=== PATIENT | male | born 1990 | race African-American/Black ===

== ENCOUNTER 2019-11-12 09:19 | Emergency (ER) | payer SELFPAY ==
--- NOTE | 2019-11-12 09:27 | ED.SKABFB ---
HPI - Skin/Abscess/Foreign Bdy General Chief complaint: Skin/Abscess/Foreign Body Stated complaint: rash Time Seen by Provider: 11/12/19 09:27 Source: patient and RN notes reviewed History of Present Illness HPI narrative: Patient is a 29-year-old male that presents the urgent care with complaints of psoriasis and possible ringworm. Patient states that he was seen here in the past for psoriasis and use the hydrocortisone cream, followed up with a physician and continue to cream. Patient states that approximately 1 month ago he developed more lesions to the back of the neck and now they have spread into the jawline, scalp, groin and the bottoms of the feet. Patient states that his girlfriend also has lesions to her groin. Patient has not used anything kbgo-cyk-ooyxpra with the exception of athlete's foot spray. No other acute complaints. No acute distress noted. Patient had a plan of care. Related Data Home Medications Medication Instructions Recorded Confirmed No Home Medications 08/22/19 11/12/19 Allergies Allergy/AdvReac Type Severity Reaction Status Date / Time Bumble Bee Allergy Unknown Swelling Uncoded 11/12/19 09:27 ZEST SOAP Allergy Unknown Rash Uncoded 11/12/19 09:27 Review of Systems Review of Systems: Narrative: CONSTITUTIONAL: Denies fever, chills, or sweats. EYES: Denies visual changes, redness, or discharge. ENT: Denies rhinorrhea, congestion, sore throat, or otalgia. CARDIOVASCULAR: Denies chest pain, palpitations, or edema. RESPIRATORY: Denies cough or dyspnea. GASTROINTESTINAL: Denies abdominal pain, nausea, vomiting, or diarrhea. GENITOURINARY: Denies dysuria or hematuria. SKIN: Denies rash or itching. MUSCULOSKELETAL: Denies back pain, joint pain, or myalgia. NEUROLOGIC: Denies headache, numbness, or weakness. PSYCHIATRIC: Denies anxiety or depression. All other systems reviewed are negative, except as documented in HPI. [facility] Social History Social History Smoking status: Never smoker Gender identity (if verbalized by the patient): Male Comments At the time of my signature, I reviewed and agree with the nursing past medical, surgical, social, and family history. There is no relevant family history pertinent to the patient complaint. Exam Narrative: Exam Narrative: GENERAL: This is a well-nourished, well-developed patient, in no apparent distress. HEAD: normocephalic, atraumatic. EYES: PERRL. Sclera clear/white. Vision is grossly intact. EARS: External ears normal NOSE: External nose normal with no obvious nasal discharge THROAT: Mucous membranes moist NECK: Neck supple CARDIOVASCULAR: Regular rate and rhythm SKIN: Dry plaque lesions to the antecubitus region bilaterally; multiple red circular lesions with clear plaque to center noted in the scalp, jawline, back of the neck, bottoms of the feet, groin NEURO: awake, alert, and oriented to person, place and time. There were no obvious focal neurologic abnormalities. EXTREMITIES: No clubbing, cyanosis, or edema. Course Vital Signs Vital signs: Vital Signs Temperature 98.0 F 11/12/19 09:28 Pulse Rate 105 H 11/12/19 09:28 Respiratory Rate 16 11/12/19 09:28 Blood Pressure 136/76 11/12/19 09:28 Pulse Oximetry 99 11/12/19 09:28 Temperature 98.0 F 11/12/19 09:28 Pulse Rate 105 H 11/12/19 09:28 Respiratory Rate 16 11/12/19 09:28 Blood Pressure 136/76 11/12/19 09:28 Pulse Oximetry 99 11/12/19 09:28 Reviewed MDM - Skin/Abscess/Foreign Bdy MDM Narrative Medical decision making narrative: Advised the patient to take the oral medication as prescribed. Make sure if you are sweating throughout the day that you are changing your close and reapplying the cream after washing the sweaty areas. Take a bath twice a day as necessary. Continue to use the amwi-zho-mazahlv fungal scrub. Make sure any towels that you are using after the bath you are discarding and using a f
[2019-11-12 09:28] VITALS: BP 136/76; PULSE 105; RESP 16; TEMP 36.7; O2SAT 99
== END 2019-11-12 09:57 | disposition home or self-care (01) ==
PROVIDERS: Emergency Provider Nurse Practitioner Family
DX: B35.9 Dermatophytosis, unspecified (principal)
CPT/HCPCS: 99213; G0463

== ENCOUNTER 2019-12-24 10:15 | Emergency (ER) | payer SELFPAY ==
[2019-12-24 10:55] VITALS: BP 117/77; PULSE 93; RESP 16; TEMP 37.1; O2SAT 99
--- NOTE | 2019-12-24 11:37 | ED.GENADULT ---
HPI - General Adult General Chief complaint: Eye Problems Stated complaint: right pink eye/ringworm Time Seen by Provider: 12/24/19 11:21 Source: patient, RN notes reviewed and old records reviewed Mode of arrival: ambulatory Limitations: no limitations History of Present Illness HPI narrative: Patient presents today complaining of her chronic skin infection that is present on his bilateral arms and posterior neck x3 months. Rash waxes and wanes. He has been seen a few times at [facility] for same complaint. He has been previously diagnosed with psoriasis and tinea. States that lesions disappear, but tend to return. He is also complaining of redness and blurred vision with increased watering to the right eye x4 days. Denies any additional symptoms. He has been using Visine and took 1 dose of Benadryl. Reports the Visine did help with the redness. Reports the Benadryl was of no help. MD complaint: Right eye redness, skin lesion Related Data Home Medications Medication Instructions Recorded Confirmed No Home Medications 12/24/19 12/24/19 Allergies Allergy/AdvReac Type Severity Reaction Status Date / Time Bumble Bee Allergy Unknown Swelling Uncoded 12/24/19 11:11 ZEST SOAP Allergy Unknown Rash Uncoded 12/24/19 11:11 Review of Systems Review of Systems: Narrative: CONSTITUTIONAL: Denies body aches, fever, chills, or sweats. EYES: Denies visual changes, discharge.+ Right eye: Blurred vision, increased watering, redness ENT: Denies rhinorrhea, congestion, sore throat, or otalgia. CARDIOVASCULAR: Denies chest pain, palpitations, or edema. RESPIRATORY: Denies cough or dyspnea. GASTROINTESTINAL: Denies abdominal pain, nausea, vomiting, or diarrhea. GENITOURINARY: Denies dysuria or hematuria. SKIN: Denies itching, or wounds.+ Rash to arms and posterior neck MUSCULOSKELETAL: Denies back pain, joint pain, or myalgia. NEUROLOGIC: Denies headache, numbness, tingling, or weakness. PSYCH: Denies depression or anxiety. [facility] Social History Social History Smoking status: Never smoker Gender identity (if verbalized by the patient): Male Comments At time of signature, I have reviewed and agree with nursing past medical, surgical, social and family history unless otherwise noted. Please see nursing chart for further information. There is no relevant family history pertinent to the presenting complaint Exam Narrative: Exam Narrative: GENERAL: Well-appearing, well-nourished, and in no acute distress. HEAD: Normocephalic, atraumatic. EYES: EOMI. PERRL. Right eye: Moderately injected and mildly swollen conjunctiva. ENT: Mucous membranes pink and moist. Nares clear. No rhinorrhea. Uvula midline. NECK: Normal AROM. Supple. No lymphadenopathy. CHEST: No respiratory distress. Clear to auscultation. HEART: Regular rate and rhythm. No murmur appreciated. Normal peripheral pulses. ABDOMEN: Soft, nontender, nondistended, normal active bowel sounds. MUSCULOSKELETAL: No bony tenderness. EXTREMITIES: Normal range of motion. No edema. SKIN: Warm, dry. Capillary refill normal. Normal skin turgor.Scarred circular lesions to bilateral antecubital fossa and upper arms. Cluster of same lesions to the posterior neck. Patient has faded scarring covering most surfaces of his arms. NEURO: No focal deficits. Alert and oriented x3. Gait steady. PSYCH: Normal affect. No signs of depression or anxiety. Course Vital Signs Vital signs: Vital Signs Temperature 98.7 F 12/24/19 10:55 Pulse Rate 93 12/24/19 10:55 Respiratory Rate 16 12/24/19 10:55 Blood Pressure 117/77 12/24/19 10:55 Pulse Oximetry 99 12/24/19 10:55 Temperature 98.7 F 12/24/19 10:55 Pulse Rate 93 12/24/19 10:55 Respiratory Rate 16 12/24/19 10:55 Blood Pressure 117/77 12/24/19 10:55 Pulse Oximetry 99 12/24/19 10:55 Reviewed Medical Decision Making Differential Diagnosis Dif
== END 2019-12-24 11:45 | disposition home or self-care (01) ==
PROVIDERS: Emergency Provider Nurse Practitioner; PCP Family Medicine
DX: L40.9 Psoriasis, unspecified (principal); H10.11 Acute atopic conjunctivitis, right eye
CPT/HCPCS: 99212; G0463

== ENCOUNTER 2024-02-10 05:45 | Emergency (ER) | payer OTHER, SELFPAY ==
--- NOTE | ~2024-02-10 | XR_ITS ---
Right ankle Technique: AP, oblique, and lateral views were obtained. Clinical History: Pain Findings: No acute fracture or dislocation is seen. Osseous alignment is anatomic. Ankle mortise and other visualized joint spaces are preserved. Soft tissues are otherwise unremarkable. Impression: No acute abnormality. Reviewed, dictated and finalized at location . Impression: No acute abnormality.
--- NOTE | ~2024-02-10 | XR_ITS ---
Right Knee Technique: AP, lateral, and sunrise views were obtained. Clinical History: Pain Findings: There is a probable longitudinally oriented nondisplaced acute fracture of the lateral aspe ct of the patellar body, less likely bipartite patella. No other fracture or dislocation seen. Joint spaces are preserved without degenerative or erosive change. Soft tissues are unremarkable. No joint effusion is seen. Impression: Probable longitudinally oriented nondisplaced acute fracture the lateral patellar body, less likely b ipartite patella. Correlate for point tenderness. Reviewed, dictated and finalized at location M. Impression: Probable longitudinally oriented nondisplaced acute fracture the lateral patell ar body, less likely bipartite patella. Correlate for point tenderness.
--- NOTE | ~2024-02-10 | XR_ITS ---
AP and lateral views of the right tibia/fibula Clinical History: Trauma Findings: Probable acute, longitudinal oriented, nondisplaced fracture the lateral aspect of the shepard llar body. No other fracture or dislocation seen. Joint spaces are preserved without significant eros catina or degenerative change. Soft tissues are unremarkable. Impression: Probable acute, longitudinally oriented, nondisplaced fracture of the lateral aspect of the patellar body. Reviewed, dictated and finalized at location M. Impression: Probable acute, longitudinally oriented, nondisplaced fracture of the lateral a spect of the patellar body.
[2024-02-10 05:52] VITALS: BP 142/103; PULSE 67; RESP 16; TEMP 37; O2SAT 100
[2024-02-10 06:16] VITALS: BP 123/85; PULSE 116; RESP 16; O2SAT 98
--- NOTE | 2024-02-10 07:28 | ED.GENADULT ---
HPI - General Adult General Chief complaint: Extremity Injury, Lower Stated complaint: fall, leg pain Time Seen by Provider: 02/10/24 06:53 History of Present Illness HPI narrative: 33-year-old male present to the emergency department for evaluation for right leg pain. Patient states he was running yesterday had a fall and landed on his right knee. Patient does complain of pain to the right knee. Patient denies striking head denies any loss of consciousness. Patient denies any other pain or injury. Patient does have pain with ambulation and pain with range of motion of the right knee. Related Data Home Medications Medication Instructions Recorded Confirmed No Home Medications 12/24/19 12/24/19 Allergies Allergy/AdvReac Type Severity Reaction Status Date / Time Bumble Bee Allergy Unknown Swelling Uncoded 12/24/19 11:11 ZEST SOAP Allergy Unknown Rash Uncoded 12/24/19 11:11 Review of Systems Review of Systems: All systems reviewed & are unremarkable except as noted in HPI and below PMFSH Social History Social History Smoking status: Never smoker Gender identity (if verbalized by the patient): Male Exam Narrative: APPEARANCE: Well appearing, no pain, no distress, well-nourished. HEAD: normocephalic, atraumatic. EYES: PERRLA/EOMI, conjunctivae clear. NOSE: Normal no drainage EARS:TMS clear with good light reflex. THROAT: Pharynx clear, no exudate. NECK: Supple. No adenopathy, no masses. RESPIRATORY: Airway patent, respirations nonlabored. Clear to auscultation bilaterally, no rales, rhonchi, wheezing. CARDIOVASCULAR: Regular rate and rhythm without murmurs rubs or gallops. ABDOMINAL: Soft, nontender, nondistended, normal bowel sounds MUSCULOSKELETAL: Tenderness to anterior knee/patella with palpation, no deformity NEURO: Alert. Cranial nerves II through XII intact. Good gait. Good coordination SKIN: Warm, dry. Normal Color Course Course Emergency Course: Patient does have a patellar fracture, he was provided knee immobilizer and crutches for limited weight-bearing Vital Signs Vital signs: Vital Signs Temperature 98.6 F 02/10/24 05:52 Pulse Rate 67 02/10/24 05:52 Respiratory Rate 16 02/10/24 05:52 Blood Pressure 142/103 H 02/10/24 05:52 Pulse Oximetry 100 02/10/24 05:52 Oxygen Delivery Room Air 02/10/24 05:52 Temperature 98.6 F 02/10/24 05:52 Pulse Rate 90 02/10/24 08:30 Respiratory Rate 16 02/10/24 08:30 Blood Pressure 135/94 H 02/10/24 08:30 Pulse Oximetry 100 02/10/24 08:30 Oxygen Delivery Room Air 02/10/24 05:52 Medical Decision Making MDM Narrative Medical decision making narrative: 33-year-old male presenting to the emergency department for evaluation for knee pain. X-ray of the right knee does show a patellar fracture. Patient was placed in knee immobilizer and provided crutches for limited weight-bearing. Patient was encouraged to have close follow-up with Orthopedics. Differential Diagnosis Differential Diagnosis: Tib-fib injury, knee injury, ankle injury Vital Signs Vital Signs: Vital Signs Temperature 98.6 F 02/10/24 05:52 Pulse Rate 67 02/10/24 05:52 Respiratory Rate 16 02/10/24 05:52 Blood Pressure 142/103 H 02/10/24 05:52 Pulse Oximetry 100 02/10/24 05:52 Oxygen Delivery Room Air 02/10/24 05:52 Temperature 98.6 F 02/10/24 05:52 Pulse Rate 90 02/10/24 08:30 Respiratory Rate 16 02/10/24 08:30 Blood Pressure 135/94 H 02/10/24 08:30 Pulse Oximetry 100 02/10/24 08:30 Oxygen Delivery Room Air 02/10/24 05:52 Imaging Data Radiologist's impression: Impressions Ankle X-Ray 02/10/24 06:45 Impression: No acute abnormality. Knee X-Ray 02/10/24 06:46 Impression: Probable longitudinally oriented nondisplaced acute fracture the lateral patellar body, less likely bipartite patella. Correlate for point tenderness.
[2024-02-10] MEDS: HYDROcodone/acetaminophen (*CRX) 5-325 MG TABLET 1 TAB PO (07:37)
[2024-02-10 08:30] VITALS: BP 135/94; PULSE 90; RESP 16; O2SAT 100
== END 2024-02-10 08:30 | disposition home or self-care (01) ==
PROVIDERS: Emergency Provider Emergency Medicine; PCP Family Medicine
DX: S82.001A Unspecified fracture of right patella, initial encounter for closed fracture (principal); W01.0XXA Fall on same level from slipping, tripping and stumbling without subsequent striking against object, initial encounter
CPT/HCPCS: 73562; 73590; 73610; 99284; A9270

== ENCOUNTER 2024-02-20 10:44 | Outpatient (CLI) | payer OTHER, SELFPAY ==
--- NOTE | ~2024-02-20 | MR_ITS ---
MRI of the right knee Clinical history: Internal derangement Technique: Coronal proton density and proton density-weighted images, sagittal proton-density and T2 fat-sat images, and axial proton-density fat-saturated images were acquired. Findings: Anterior and posterior cruciate ligaments are intact. There is mild increased signal of the ACL, with intact fibers. Medial collateral ligament and the lateral collateral ligament complex are intact. Popliteus tendon is intact. Medial and lateral menisci are intact, without evidence of tear. Articular cartilage is well preserved throughout the knee. There is a chronic nonunited fracture of t he lateral aspect of the patella versus bipartite patella. There are focal mild bone contusions at th e medial aspect of the femoral trochlea, and anterior aspect of the proximal tibia. Additional focal contusion present at the posterior medial tibial plateau. Extensor mechanism is intact. Small joint effusion present. No significant Salas's cyst. Impression: Mild increased signal of the ACL could reflect ACL sprain. No definite tear. Mild bone contusions of the femoral trochlea and proximal tibia, as detailed above. 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 Small joint effusion. Reviewed, dictated and finalized at location . Impression: Mild increased signal of the ACL could reflect ACL sprain. No definite tear. Mild bone contusions of the femoral trochlea and proximal tibia, as detailed ab ove. 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 Small joint effusion.
== END 2024-02-20 10:45 ==
PROVIDERS: PCP Family Medicine; Visit Provider Orthopaedic Surgery
DX: S80.11XA Contusion of right lower leg, initial encounter (principal); M25.461 Effusion, right knee; X58.XXXA Exposure to other specified factors, initial encounter
CPT/HCPCS: 73721

== ENCOUNTER 2025-05-14 23:56 | Emergency (ER) | payer OTHER, SELFPAY ==
[2025-05-14 23:59] VITALS: BP 130/76; PULSE 88; RESP 20; TEMP 37.1; O2SAT 100
--- NOTE | 2025-05-15 02:15 | PC.NURSE ---
eye kit at bedside for edp
--- OUTSIDE RECORDS SUMMARY | 2025-05-15 02:16 | XMS_ITS | Clinical Summary ---
Author Organization [facility] Address [address] [place] [address] Phone Care Team Providers Care Special Education Para Professional Name Role Phone Unavailable Primary Care Provider Unavailabl e Medications HYDROcodone-acet aminophen (NORCO) 5-325 mg Oral tablet Take 1-2 Tabs by mouth every 6 hours as needed for Pain, Moderate. 20 Tab None 03/20/2012 Active Social History Tobacco Use Types Packs/Day Years Used Date Smoking Tobacco: Never Assessed Sex and Gender Information Value Date Recorded Sex Assigned at Not on file Legal Sex Male 6:10 AM [employer] Gender Identity Not on file Sexual Orientation Not on file Last Filed Vital Signs Vital Sign Reading Time Taken Comments Blood Pressure 105/47 03/20/2012 7:11 PM CDT Pulse 70 03/20/2012 7:11 PM CDT Temperature 36.9 C (98.5 F) 03/20/2012 5:11 PM CDT Respiratory Rate 16 03/20/2012 7:11 PM CDT Oxygen Saturation 97% 03/20/2012 7:11 PM CDT Inhaled Oxygen Concentration - - Weight 70.3 kg (155 lb) 03/20/2012 5:11 PM CDT Height 172.7 cm (5' 8) 03/20/2012 5:11 PM CDT Body Mass Index 23.57 03/20/2012 5:11 PM CDT Plan of Treatment Health Maintenance Due Date Last Done Comments DTAP/TDAP/TD VACCINES (1 - Tdap) 2007 HEPATITIS B VACCINES (1 of 3 - 19+ 3-dose series) 04/15 HPV VACCINES (1 - 3-dose SCDM series) 2015 INFLUENZA VACCINE (#1) 2025
--- OUTSIDE RECORDS SUMMARY | 2025-05-15 02:16 | XMS_ITS | Clinical Summary ---
Author Organization [facility] Address [address] [place] [address] Care Team Providers Care Nursing Education Specialist Name Role Phone Mulugeta Disla MD Primary Care Provider [phone] Source Comments [facility],non-owned Affiliates and Associated Physician Practices is amultiple site organization consisting of ambulatory clinics and hospital sitesin [place], [place], [place] and [place]. This disclosure is being madepursuant to the Care Everywhere program and may not contain all information available regarding this patient. Last updated 18.[facility] Mommy Nearest Allergies Active Allergy Reactions Criticality Noted Date Comments Contrast-Iodinated Agents For Ct/Other Swelling 12/28/2023 BEE sting, per pt had a Epi pen , no longer had one. Medications * Be aware that medications may not be up to date on this document. Alwaysverify current medications with the patient. Multiple Vitamin (One-A-Day Mens) TABS Active doxycycline hyclate 100 MG tabletIndications:D oxyPEP Take 2 (two) tablets by mouth as soon as possible within 72 hours of condomless sex as part of a DoxyPEP strategy to prevent bacterial sexually transmitted infections (STIs). Do not take more than 200 mg in 24 hours. Reasons: DoxyPEP 30 tablet 2 025 Active Biktarvy 50-200-25 MGIndications:Human immunodeficiency virus (HIV) disease (HCC),Health education/counselin g TAKE 1 TABLET BY MOUTH DAILY 30 tablet 3 025 Active bictegravir-emtrici tabine-tenofovir (Biktarvy) 50-200-25 MGIndications:Human immunodeficiency virus (HIV) disease (HCC),Health education/counselin g Take 1 (one) tablet by mouth once daily 30 tablet 3 025 2024 Discontinued Active Problems No known active problems Encounters Date Type Department Care Team Description 04/22/2025 Refill [facility] - Infectious Disease [address] [place] [address], [facility] [place] [address] Mable Rich MD Refill Request from Last 3 Months Immunizations Immunization Administration Dates Next Due COVID PFIZER BIVALENT 12Y+ 30mcg/0.3ML 3 DTP 06/29/1993, 2,04/30/1990,12/24,1988 HEP A PED/ADULT VACCINE 11/06/2018 HEP A PEDS 2 DOSE 11/06/2018 HEP A VACCINE, ADULT 02/28/2014 HEP B VACCINE, PED/ADOL 06/17/2000,04/01/2000, Hep B, Adjuvanted 09/08/2022,11/11/2021 Human Papilloma Virus Nineva lent Vaccine 12/28/2023 MENINGOCOCCAL ACWY MENVEO 11/14/2024,12/28/2023 MMR 06/29/1993,04/30/1990 PNEUMOCOCCAL PCV20 CONJ VAC IM 11/11/2021 POLIO OPV 06/29/1993, 2,04/30/1990,12/24,1988 TDAP (7yrs+) 11/14/2024 Td (Adult), 2 Lf Tetanus Tox oid, Adsorbed, Pf 03/29/2003 Family History Medical History Relation Name Comments Hypertension Maternal Grandmother Cancer - Breast Mother at 18 . Relation Name Status Comments Maternal Grandmother Mother Alive Social History Tobacco Use Types Packs/Day Years Used Date Smoking Tobacco: Never Smokeless Tobacco: Never Tobacco Cessation:Counseling Given: Not Answered Alcohol Use Standard Drinks/Week Comments Not Currently 0 (1 standard drink = 0.6 oz pur e alcohol) rarely PHQ-2 Answer Date Recorded Patient Health Questionnaire-2 Score 0 11/14/2024 Sex and Gender Information Value Date Recorded Sex Assigned at Male 10/21/2021 10:43 AM [employer] Legal Sex Male 8:49 AM [employer] Gender Identity Male 10/21/2021 10:43 AM [employer] Sexual Orientation Not on file Last Filed Vital Signs Vital Sign Reading Time Taken Comments Blood Pressure 132/81 11/14/2024 1:34 PM CDT Pulse 104 11/14/2024 1:34 PM CDT Temperature 36.3 C (97.3 F) 11/14/2024 1:34 PM CDT Respiratory Rate 18 03/23/2024 2:19 PM CDT Oxygen Saturation 97% 11/14/2024 1:34 PM CDT Inhaled Oxygen Concentration - - Weight 86.2 kg (190 lb) 11/14/2024 1:34 PM CDT Height 177 cm (5' 9.69) 03/23/2024 2:19 PM CDT Body Mass Index 27.51 03/23/2024 2:19 PM CDT Plan of Treatment Health Maintenance Due Date Last Done Comments ZOSTER VACCINE (1 of 2) 2007 HPV VACCINE (2 - Risk male 3-dose series) 01/25/2024 12/28/2023 COVID-19 VACCINE ( season) 2025 09/08/2022, 06/07/2021, 02/22/2021 INFLUENZA VACCINE (#1) 2025 MENINGOCOCCAL GROUPS A/C/Y/W VACCINE (3 - Risk 2-dose series) 11/14/2029 11/14/2024, 12/28/2023 DTAP/TDAP/TD VACCINES (7 - Td or Tdap) 11/14/2034 11/14/2024, 03/29/2003, 06/29/1993, Additional history exists PNEUMOCOCCAL VACCINE Completed 11/11/2021 HEPATITIS B VACCINE Completed 09/08/2022, 11/11/2021, 06/17/2000, Additional history exists HEPATITIS C SCREENING Completed 12/28/2023 , 09/08/2022, 10/08/2021 DEPRESSION SCREENING Completed 11/14/2024, 12/28/2023, 09/08/2022, Additional history exists HIV SCREENING Completed 04/22/2025, 09/2024, 09/13/2024, Additional history exists HIB VACCINE Aged Out No longer eligi ble based on patient's age to complete this topic MENINGOCOCCAL (Group B) VACCINE SHARED DECISION-MAKING Aged Out No longer eligible based on patient's age to complete this topic Procedures Procedure Name Priority Date/Time Associated Diagnosis Comments HEPATITIS C AB W/RFLX TO HCV RNA QN PCR Routine 12/28/2023 3:33 PM CDT Need for hepatitis C screening test HIV-1 HIV-2 ANTIBODY + HIV P24 AG PANEL STAT 10/08/2021 3:47 PM [employer] from Last 3 Months or Most Recently Relevant to Health Maintenance Results * Hep C Antibody with reflex ([employer]) (12/28/2023 3:33 PM CDT) Hepatitis C Antibody NON-REACTI VE NON-REACT [facility] Comment: HCV antibody was non-reactive. There is no laboratory evidence of HCV infection. In most cases, no further action is required. However, if recent HCV exposure is suspected, a test for HCV RNA (test code 22974) is suggested. For additional information please refer to http://education.[email or web address].Mover/faq/UNG34b5 (This link is being provided for informational/ educational purposes only.) Test Performed at: [facility] [address] [place] [address] NELLIE NIEVES MD Blood BLOOD SPECIMEN / Unknown 12/28/2023 3:33 PM CDT 12/29/2023 12:52 PM CDT us Mable Rich MD LAB - CHEMISTRY ORDERABLES Final Result [employer] [facility] [address] [place] [address] * (ABNORMAL) HIV-1 HIV-2 ANTIBODY + HIV P24 AG PANEL (10/08/2021 3:47 PM [employer]) HIV Antigen/Antibody 1 & 2 Reactive( A) Non-react catina 10/08/2021 5:33 PM [employer] [facility] Comment: HIV-1/HIV-2 Antibody + Antigen screening test is reactive, but is NOT DIAGNOSTIC. HIV-1/HIV-2 AB Differentiation assay, a supplemental test, will be performed. If HIV-1/HIV-2 Differentiation testing is negative, RNA testing will be performed. See separate reports. Blood BLOOD SPECIMEN / Unknown Venipuncture / Unknown 10/08/2021 3:47 PM [employer] 10/08/2021 3:55 PM [employer] Kristy Stephens HOISTING ENGINEER [employer]ING [employer] MANAGER LAB - CHEMISTRY ORDERA BLES Edited Result - Final [facility] [address] [place] [id number], [facility] [phone] from Last 3 Months or Most Recently Relevant to Health Maintenance [place] [address] [place] [address] CARE [facility] CARE Care Teams Nursing Education Specialist Relationship Specialty Start Date End Date Mulugeta Disla MD [address] [place] [id number] PCP - General 10/11/21
--- NOTE | 2025-05-15 04:21 | ED.EYEPROB ---
HPI - Eye Problem General Chief complaint: Eye Problems Stated complaint: eye foreign body Time Seen by Provider: 05/15/25 03:22 History of Present Illness [facility] Narrative: 35-year-old male presenting with foreign body sensation in his left eye since 5:00 p.m. yesterday night. Denies any traumatic injuries or exposures. Does not think he has anything in his eye besides maybe an eyelash. Notices that he has had some injection in his left eye with pink appearance. No traumatic injuries. No systemic features. No nausea, vomiting, vision changes. Denies any blurriness to his vision. Has tried some vmqt-uwm-xmagtqv eyedrops without any significant relief. Was otherwise in his normal state of health. Related Data Home Medications ?Medication ?Instructions ?Recorded ?Confirmed ?Last Taken ?Type courqprxk-ybenikto-igxthtv ala PO 02/22/24 03/29/24 Unknown History [Biktarvy] Allergies Allergy/AdvReac Type Severity Reaction Status Date / Time Bumble Bee Allergy Unknown Swelling Uncoded 09/16/24 16:02 ZEST SOAP Allergy Unknown Rash Uncoded 09/16/24 16:02 Review of Systems Review of Systems: As reviewed above in HPI [facility] Past Medical History Medical History HIV (human immunodeficiency virus infection) Social History Social History Smoking status: Never smoker Occupation/Education: occupation 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 Gender identity (if verbalized by the patient): Male Exam Narrative: GENERAL: [Well-appearing, well-nourished, and in no acute distress.] HEAD: [Normocephalic, atraumatic.] EYES: Pupils are 3 mm and equal reactive to light, extraocular movements are intact and did not elicit any pain. Fluorescein dye and examination with Wood's lamp shows no corneal abrasions, ulcerations or keratitis. Conjunctival injection is noted sparing limbus. No retained foreign bodies underneath either the top or bottom eyelid margins. Pain relief immediately with tetracaine drops. ENT: Nares clear, no rhinorrhea or epistaxis. Mucous membranes moist. NECK: Supple. CHEST: [Clear to auscultation. No respiratory distress.] HEART: [Regular rate and rhythm]. No murmur heard. [Normal peripheral pulses.] ABDOMEN: [Soft, nondistended], [nontender], [No rigidity or guarding] EXTREMITIES: Normal range of motion. [No edema.] SKIN: Warm, dry, no rash. NEURO: [No focal deficits]. Alert and oriented [x3.] PSYCH: [Normal mood and affect.] Course Vital Signs Vital signs: Vital Signs Temperature 37.1 C 05/14/25 23:59 Pulse Rate 88 05/14/25 23:59 Respiratory Rate 20 05/14/25 23:59 Blood Pressure 130/76 05/14/25 23:59 Pulse Oximetry 100 05/14/25 23:59 Oxygen Delivery Room Air 05/14/25 23:59 Temperature 36.6 C 05/15/25 04:47 Pulse Rate 67 05/15/25 04:47 Respiratory Rate 16 05/15/25 04:47 Blood Pressure 117/79 05/15/25 04:47 Pulse Oximetry 98 05/15/25 04:47 Oxygen Delivery Room Air 05/14/25 23:59 MDM - Eye Problem MDM Narrative Medical decision making narrative: 35-year-old male presenting with foreign body sensation in his left eye since 5:00 p.m. yesterday night. Denies any traumatic injuries or exposures. Does not think he has anything in his eye besides maybe an eyelash. Notices that he has had some injection in his left eye with pink appearance. No traumatic injuries. No systemic features. No nausea, vomiting, vision changes. Denies any blurriness to his vision. Has tried some vfct-xka-xywlcnh eyedrops without any significant relief. Was otherwise in his normal state of health. Pupils are 3 mm and equal reactive to light, extraocular movements are intact and did not elicit any pain. Fluorescein dye and examination with Wood's lamp shows no corneal abrasions, ulcerations or keratitis. Conjunctival injection is noted sparing limbus. No retained foreign bodies underneath either the top or bottom eyelid margins. Pain relief immediately with tetracaine drops. Patient has normal vital signs and signs and symptoms of viral versus bacterial conjunctivitis with no physical findings of abrasion, laceration, retained foreign body. Patient had immediate relief with topical tetracaine. Will be sent home with Polytrim drops and prescription provided. Return precautions described and he will follow up with his regular doctor as needed Medical Records Attestation: I reviewed the patient's medical records. Discharge Plan Discharge Clinical Impression: Conjunctivitis Patient Disposition: Home Condition: Stable Instructions: Antibiotic Form, Conjunctivitis (ED) Additional Instructions: Symptoms consistent with viral versus bacterial conjunctivitis. We have prescribed special eyedrops to be taken 1 drop every 3 hours for 7 days. Follow-up with regular doctor. Return with any vision changes, worsening pain or new concerns. Patient Language: Mohawk Prescriptions: New polymyxin B sulf-trimethoprim 10,000 unit- 1 mg/mL drops 1 drp EACH EYE Q3H 7 Days Qty: 10 0RF Rx Instructions: while awake; do not exceed 6 doses in 24 hours No Action ondansetron 4 mg tablet,disintegrating 4 mg PO Q8H PRN (Reason: nausea and vomiting) Qty: 12 0RF qxvxygefe-ajqfgght-vqrxple ala [Biktarvy] PO Follow-up/Referrals: Summer Peralta MD [Primary Care Provider, Family Practice] Stand Alone Forms: Work/School Release IP Time of Disposition: 04:26
[2025-05-15] MEDS: TETRACAINE HCL 0.5% OPHTH SOLN 4 ML BTL 1 DROP (04:39)
[2025-05-15] MEDS: POLYMYXIN/TRIMETHOPRIM OPHTH 10 ML DROPS 2 DROP LEFT EYE (04:39)
[2025-05-15] MEDS: DACRIOSE EYE IRRIGATION 118 ML BOTTLE (04:39)
[2025-05-15] MEDS: FLUORESCEIN SOD 1 MG/STRIP (04:39)
[2025-05-15 04:47] VITALS: BP 117/79; PULSE 67; RESP 16; TEMP 36.6; O2SAT 98
== END 2025-05-15 04:49 | disposition home or self-care (01) ==
PROVIDERS: Emergency Provider Student in an Organized Health Care Education/Training Program; PCP Family Medicine
DX: H10.9 Unspecified conjunctivitis (principal)
CPT/HCPCS: 99283; A9270